=== PATIENT | male | born 1955 | race Caucasian/White ===

== ENCOUNTER → 2019-07-22 09:24 | Outpatient (CLI) | payer MEDICARE, OTHER, SELFPAY ==
--- NOTE | 2019-07-22 | DI.US.S_ITS ---
PROCEDURE: US RENAL COMPLETE INDICATIONS: UNSPECIFIED HYDRONEPHROSIS TECHNIQUE: Real-time scanning was performed of the kidneys and bladder, with image documentation. COMPARISON: None. FINDINGS: Kidneys: Right kidney measures 9.6 cm long; left kidney measures 8.6 cm long. Right renal cortical thickness is 1.2 cm; left renal cortical thickness is 1.0 cm. Renal cortical echotexture is minimally echogenic compatible with sequela of chronic medical renal disease. No right-sided hydronephrosis or nephrolithiasis. Mild left-sided hydronephrosis. No suspicious solid mass lesions. Bladder: Bladder is decompressed by a Guerrero catheter. Wall thickness measures approximately 10 mm. Bilateral ureteral jets are not visualized. (Of note, ureteral jets may not be detectable in up to 25% of cases due to insufficient differences in specific gravity between ureteral and bladder urine). Miscellaneous: No free pelvic fluid. IMPRESSION: 1. Mild left hydronephrosis. 2. Mildly increased bilateral renal echotexture consistent with sequela of chronic medical renal disease. 3. Limited evaluation of the urinary bladder secondary to decompression by Guerrero catheter. Dictated by: Charles Lugo M.D. on 07/22/2019 at 11:59 Approved by: Charles Lugo M.D. on 07/22/2019 at 12:05
== END ==
PROVIDERS: PCP Family Medicine; Referring Provider Specialist; Visit Provider Urology
DX: N13.30 Unspecified hydronephrosis (principal)
CPT/HCPCS: 76770

== ENCOUNTER → 2019-12-11 08:39 | Outpatient (CLI) | payer MEDICARE, OTHER, SELFPAY ==
--- NOTE | 2019-12-11 | DI.CT.S_ITS ---
PROCEDURE: CT ABDOMEN PELVIS W CON INDICATIONS: PROSTATE CANCER TECHNIQUE: After the administration of oral and intravenous contrast, 5 mm thick sections acquired from the diaphragms to the symphysis. 5 mm thick coronal and sagittal reformats were performed. For radiation dose reduction, the following was used: automated exposure control, adjustment of mA and/or kV according to patient size. COMPARISON: [facility], , RENAL COMPLETE, 07/22/2019, 9:49. FINDINGS: Image quality: Excellent. ABDOMEN: Lung bases: Lung bases are clear except for a slight alveolar prominence at the medial right lung base abutting the cardiac silhouette, which can be produced by slight focal pneumonitis but also scarring from prior inflammatory event. Heart size is normal. Solid organs: Liver is normal in size and enhancement. Gallbladder appears normal. Biliary system is non-dilated. Pancreas enhances normally. Spleen is normal in size and enhancement. No adrenal nodules. Kidneys are normal in size and enhancement, without hydronephrosis. Peritoneum and bowel: Stomach, small bowel, and colon loops are normal in caliber and wall thickness. No free fluid or air. Nodes and vessels: No retroperitoneal or mesenteric adenopathy. Aorta and inferior vena cava are normal in caliber. Miscellaneous: No ventral hernias. PELVIS: Genitourinary: Bladder wall thickness is abnormal, diffusely thickened, with a Guerrero catheter traversing centrally, and no urine appears present within the bladder lumen. The prostate gland area is small, perhaps reflecting prior prostatectomy. No area of adjacent adenopathy is found. Miscellaneous: No inguinal hernias or adenopathy. Bones: No suspicious bony lesions. No vertebral body compression fractures. IMPRESSION: 1. Concentric bladder wall thickening, strutting a Guerrero catheter centrally within the bladder lumen. An eccentric mass is not found. Chronic cystitis is a potential etiology for this appearance as is radiation therapy. 2. The prostate area is relatively small in terms of soft tissue prominence. No adjacent adenopathy is found. Through the osseous elements of the axial and appendicular skeleton seen no osteoblastic metastatic disease is found. 3. Slight prominence of the alveoli focally at the medial right lung base, considered most likely a manifestation of scarring from an old inflammatory event rather than evidence of focal alveolitis from mild or early pneumonia, by appearance. Dictated by: Dustin Khan M.D. on 12/11/2019 at 12:36 Approved by: Dustin Khan M.D. on 12/11/2019 at 12:42
--- NOTE | 2019-12-11 | DI.NM.S_ITS ---
PROCEDURE: NM BONE SCAN WHOLE BODY RADIOPHARMACEUTICAL: 20.5 mCi Tc-99m MDP IV. INDICATIONS: PROSTATE CANCER TECHNIQUE: Delayed whole-body scintigrams were obtained approximately 3-4 hours after intravenous injection of radiotracer. Anterior and posterior views were acquired from vertex to feet. Additional left and right oblique views of the pelvis were obtained. COMPARISON: [facility], CT, CT ABDOMEN PELVIS W CON, 12/11/2019, 9:32. FINDINGS: No lesions are identified in skull, sternum, clavicles, scapulae, ribs, bony pelvis, and visualized shafts of the long bones. There is mild scoliosis. Foci of low level increased uptake in cervical, thoracic and lumbar spine with distribution are indistinguishable from degenerative disc and facet disease; early metastasis to spine could be obscured by degenerative changes. There are foci of increased periarticular activity involving multiple peripheral joints, compatible with degenerative/arthritic changes. There is non-visualization of kidneys. There is normal soft tissue uptake. IMPRESSION: 1. No definitive focal tracer uptake. 2. Non-visualized of kidneys. This finding suggests SuperScan (diffuse metastatic disease). Please correlate with PSA. Dictated by: Yves Pena M.D. on 12/11/2019 at 16:43 Approved by: Yves Pena M.D. on 12/11/2019 at 17:28
== END ==
PROVIDERS: PCP Family Medicine; Referring Provider Family Medicine; Visit Provider Urology
DX: C61 Malignant neoplasm of prostate (principal)
CPT/HCPCS: 74177; 78306; A9503; Q9967

== ENCOUNTER → 2021-07-19 13:25 | Outpatient (CLI) | payer MEDICARE, OTHER, SELFPAY ==
--- NOTE | 2021-07-19 | DI.CT.S_ITS ---
PROCEDURE: CT ABDOMEN PELVIS WO CON INDICATIONS: Awaiting organ transplant status TECHNIQUE: Noncontrast 5 mm thick sections acquired from the diaphragms to the symphysis. 5 mm coronal and sagittal reformats were then performed. For radiation dose reduction, the following was used: automated exposure control, adjustment of mA and/or kV according to patient size. COMPARISON: None. FINDINGS: Image quality: Excellent. ABDOMEN: Lung bases: Lung bases are clear. Heart size is normal. Solid organs: Liver is normal in size. Gallbladder is normal . Pancreas is normal in contours. Spleen is normal in size. No adrenal nodules. Both kidneys are small and atrophic. There is surrounding stranding, likely chronic Peritoneum and bowel: There is a small hiatal hernia. The stomach is normal. The small bowel has a normal caliber and appearance. The large bowel demonstrates increased stool consistent with constipation. There is diverticulosis without evidence of diverticulitis. Nodes and vessels: No retroperitoneal or mesenteric adenopathy by size criteria. The aorta has atherosclerotic calcifications with no aneurysmal dilatation. Miscellaneous: No ventral hernias. PELVIS: Genitourinary: Bladder wall thickness is normal. Miscellaneous: Small fat containing inguinal hernias. No adenopathy. Bones: Multilevel degenerative changes. There is disc disease at L5-S1. IMPRESSION: 1. No acute abdominal or pelvic abnormality. 2. Bilateral atrophic kidneys. Dictated by: Naveen Ramirez M.D. on 07/19/2021 at 14:02 Approved by: Naveen Ramirez M.D. on 07/19/2021 at 14:17
--- NOTE | 2021-07-19 | DI.ECHO.S_ITS ---
[facility] +---------+ : : [address] : : : : [id number] : : : : Phone: [phone]+ Echocardiogram Report + + :Name: MIRELLA RODRIGUEZ Study Date: 07/19/2021 Height: 71 in : :[facility] ReadingLocation: Weight: 218 lb : : Gender: Male BSA: 2.2 m2 : :: 1955 Age: 65 yrs BP: 162/89 mmHg: :Reason For Study: AWAITING ORGAN TRANSPLANT : :Ordering Physician: JON COVINGTONPerformed By: Kisha El : :Referring: JON COVINGTON : + + Interpretation Summary Borderline dilation of the LV cavity. The ejection fraction is estimated to be 60-65%. Diastolic function is abnormal. Mild to moderate RV dilation with preserved systolic function. Moderate left atrial dilation. Mild to moderate mitral regurgitation. Mild tricuspid regurgitation. Mildly elevated PASP. Procedure: A two-dimensional transthoracic echocardiogram with color flow and Doppler was performed. The study quality was technically adequate. There is no prior echocardiogram noted for this patient. The patient was in sinus rhythm with heart rates between 63-67 bpm during the exam. Left Ventricle: The left ventricle is borderline dilated. The estimated left ventricular end diastolic volume is 145 ml. There is normal left ventricular wall thickness. The ejection fraction is estimated to be 60-65%. Diastolic function is abnormal. Right Ventricle: The right ventricle is mild to moderately dilated. The right ventricular systolic function is normal. Atria: The left atrium is moderately dilated. Right atrial size is normal. There is no Doppler evidence for an interatrial shunt. Mitral Valve: There is mild to moderate mitral annular calcification. The mitral valve leaflets are mildly calcified. There is mild to moderate mitral regurgitation. Aortic Valve: The aortic valve is trileaflet. The aortic valve opens well. There is no aortic valve stenosis. There is trace aortic regurgitation. Tricuspid Valve: The tricuspid valve is normal in structure and function. There is mild tricuspid regurgitation. Pulmonary artery systolic pressure is approximately 33 to 38 mmHg. Pulmonic Valve: The pulmonic valve is not well visualized. There is a trace or physiologic amount of pulmonic regurgitation. Great Vessels: The aortic root is normal size. The ascending aorta is mildly enlarged. The IVC is of normal diameter and collapses greater than 50% with a sniff. This suggests a low right atrial pressure of 3 mm Hg. Pericardium/ Pleura There is no pericardial effusion. There is no pleural effusion. MMode/2D Measurements & Calculations LVIDd: 6.0 cm LVOT diam: 2.3 cm LVIDs: 3.8 cm Ao root diam: 3.5 cm FS: 35.8 % asc Aorta Diam: 3.7 cm IVSd: 0.84 cm Ao Arch Diam (Prox Trans): 3.5 cm LVPWd: 0.78 cm LV guerrero. diameter/BSA (cm/m^2): 2.7 LV sys. diameter/BSA (cm/m^2): 1.8 LA A2 area: 33.0 cm2 RA long axis: 5.5 cm LA A4 area: 29.3 cm2 RA area: 17.5 cm2 LA length (vol): 6.3 cm RA vol: 47.7 ml LA vol: 130.7 ml RA : 21.8 ml/m2 LA vol index: 59.7 ml/m2 IVC diam: 1.4 cm RVD1 (basal): 4.6 cm TAPSE: 2.2 cm Doppler Measurements & Calculations Ao V2 max: 166.8 cm/sec LVOT Max Bhavesh: 126.4 cm/sec Ao V2 mean: 115.4 cm/sec LV V1 max P.4 mmHg Ao max P.1 mmHg LV V1 VTI: 27.4 cm Ao mean P.0 mmHg DORITA(I,D): 3.2 cm2 Ao V2 VTI: 36.0 cm DORITA(V,D): 3.1 cm2 sev ratio: 0.76 DORITA indexed to BSA (cm^2/m^2): 1.4 MV E max bhavesh: 114.8 cm/sec TR max bhavesh: 264.7 cm/sec MV A max bhavesh: 118.4 cm/sec TR max P.0 mmHg MV E/A: 0.97 PA V2 max: 115.2 cm/sec Med Peak E' Bhavesh: 6.0 cm/sec PA V2 mean: 86.3 cm/sec E/E' med: 19.3 PA mean P.3 mmHg Lat Peak E' Bhavesh: 7.0 cm/sec PA pr(Accel): 41.3 mmHg E/E' lat: 16.3 E/e' average: 17.8 MV dec time: 0.23 sec MVA(VTI): 2.5 cm2 MV V2 mean: 99.1 cm/sec SV(LVOT): 113.5 ml MV mean P.3 mmHg MV V2 VTI: 44.5 cm Reading Physician:05:38 PM
--- NOTE | 2021-07-19 | DI.US.S_ITS ---
PROCEDURE: US RENAL COMPLETE INDICATIONS: AWAITING ORGAN TRANSPLANT STATUS TECHNIQUE: Real-time scanning was performed of the kidneys and bladder, with image documentation. COMPARISON: [facility], , RENAL COMPLETE, 07/22/2019, 9:49. FINDINGS: Kidneys: Atrophic. Right kidney measures 6.3 cm long; left kidney measures 8.2 cm long. Right renal cortical thickness is 1.1 cm; left renal cortical thickness is 1.1 cm. Renal cortical echotexture is echogenic. No hydronephrosis or nephrolithiasis. No suspicious solid mass lesions. Bladder: The urinary bladder is not well distended. No ureteral jets are noted with color Doppler interrogation. Miscellaneous: No free pelvic fluid. IMPRESSION: Bilateral atrophy as detailed above. Dictated by: Shaq Garcia M.D. on 07/19/2021 at 15:17 Approved by: Shaq Garcia M.D. on 07/19/2021 at 15:22
== END ==
PROVIDERS: PCP Family Medicine; Referring Provider Specialist; Visit Provider Specialist
DX: Z76.82 Awaiting organ transplant status (principal); N26.1 Atrophy of kidney (terminal); I07.1 Rheumatic tricuspid insufficiency; I34.0 Nonrheumatic mitral (valve) insufficiency; I27.20 Pulmonary hypertension, unspecified
CPT/HCPCS: 74176; 76770; 93306

== ENCOUNTER → 2021-07-26 08:37 | Outpatient (CLI) | payer MEDICARE, OTHER, SELFPAY ==
[2021-07-26 11:53] LABS: COVID19 -Nasal RAPID Negative (Negative)
== END ==
PROVIDERS: PCP Family Medicine; Visit Provider Nurse Practitioner
DX: Z20.822 Contact with and (suspected) exposure to COVID-19 (principal); Z01.812 Encounter for preprocedural laboratory examination
CPT/HCPCS: 87635; C9803

== ENCOUNTER → 2021-07-28 07:32 | Outpatient (CLI) | payer MEDICARE, OTHER, SELFPAY ==
--- NOTE | 2021-07-28 07:34 | DI.NM.S_ITS ---
PROCEDURE: NM FAHEEM PERF SPECT REST & STR Rest and exercise myocardial perfusion SPECT with gated imaging and ejection fraction RADIOPHARMACEUTICAL: 11.7 mCi Tc-99m sestamibi IV at rest and 25.9 mCi Tc-99m sestamibi IV at peak exercise. A one day-protocol was performed. INDICATIONS: Ilia Castillo TECHNIQUE: Radiopharmaceutical was injected at peak stress test, and also at rest. SPECT images were obtained. SPECT myocardial perfusion images were displayed in short axis, horizontal long axis, and vertical long axis views. Gated images were reviewed using Slated software. COMPARISON: None. CARDIAC STRESS: A standard Agapito treadmill exercise tolerance test was performed by the patient under the supervision of an attending staff. The patient exercised for 7 minutes and 1 seconds; functional aerobic impairment (TREMAYNE) is +1%. Hemodynamic data: There is normal blood pressure and heart rate response to exercise stress. Patient achieved 92% of maximum predicted heart rate at peak exercise. Symptoms: Patient denied chest pain during exercise. EKG: Mildly horizontal ST depressions in the anterolateral and inferior leads during recovery; Frequent PACs and rare PVCs during recovery. FINDINGS: Raw data: There is good myocardial labeling by radiotracer. No significant motion artifacts. Left ventricle function: Gated images demonstrate normal left ventricle wall thickening. No segmental wall motion abnormality. No transient ischemic dilation; TID is 1.05 (normal less than 1.3). The left ventricle resting end-diastolic volume is 168 mL. Left ventricle stress ejection fraction is 67%; normal values are above 45%. Myocardial perfusion: There is fixed mildly to moderately intense defect in the basal to mid inferolateral wall that persists on prone imaging, suggesting prior infarction with no tarik-infarct ischemia. IMPRESSION: Abnormal stress test consistent with prior small non-transmural infarction. No ischemia. 1) There is fixed mildly to moderately intense defect in the basal to mid inferolateral wall that persists on prone imaging, suggesting prior infarction with no tarik-infarct ischemia. 2) Enlarged left ventricle (LVEDV 168cc) with normal wall motion and normal systolic function (EF 67% post stress). 3) Mildly horizontal ST depressions in the anterolateral and inferior leads during recovery 4) Frequent PACs and rare PVCs during recovery. 5) No angina during the study. 6) Average exercise capacity (8.1 METs, TREMAYNE +1%). Target heart rate achieved. Appropriate BP response to exercise. 7) No prior nuclear stress test available for comparison. Dictated by: Luis M Hilario MD on 07/28/2021 at 16:58 Approved by: Luis M Hilario MD on 07/28/2021 at 17:03
== END ==
PROVIDERS: PCP Specialist; Referring Provider Specialist; Visit Provider Specialist
DX: Z01.810 Encounter for preprocedural cardiovascular examination (principal); Z76.82 Awaiting organ transplant status; R94.39 Abnormal result of other cardiovascular function study
CPT/HCPCS: 78452; 93017; A9502

== ENCOUNTER → 2021-10-23 10:51 | Outpatient (CLI) | payer MEDICARE, OTHER, SELFPAY ==
[2021-10-23 14:17] LABS: COVID19 -Nasal RAPID Negative (Negative)
== END ==
PROVIDERS: PCP Internal Medicine Infectious Disease; Visit Provider Nurse Practitioner Family
DX: Z01.812 Encounter for preprocedural laboratory examination (principal); Z20.822 Contact with and (suspected) exposure to COVID-19
CPT/HCPCS: 87635; C9803

== ENCOUNTER 2021-10-24 06:34 | Day surgery (SDC) | payer MEDICARE, OTHER, SELFPAY ==
[2021-10-24] VITALS (9 sets, daily range): BP systolic 91–157; BP diastolic 40–85; PULSE 58–78; RESP 10–16; TEMP 36.4–36.6; O2SAT 97–100; BMI 30.1
--- NOTE | 2021-10-24 | PATH_ITS ---
[facility] Accession Number: [id number] . 01 Material submitted: . PART A: cecum - CECAL POLYP PART B: rectum - RECTAL POLYP . 02 Diagnosis: A. Cecum, Polyp, Biopsy: Colonic mucosa with no significant diagnostic abnormality, consistent with polypoid redundancy. Additional levels were examined. Negative for dysplasia and malignancy. . B. Rectum, Polyp, Biopsy: Mucosal prolapse polyp. Negative for dysplasia and malignancy. [facility] 10/26/2021 1622 Local . 02 Electronically signed: . Felisha Bobo MD, Pathologist NPI- [id number] . 01 Gross description: . Part A: CECAL POLYP: Received in formalin is 1 fragment(s) of florian, soft tissue measuring 0.2 x 0.2 x 0.2 cm submitted entirely in 1 cassette(s) Part B: RECTAL POLYP: Received in formalin is 1 fragment(s) of florian, soft tissue measuring 0.2 x 0.2 x 0.2 cm submitted entirely in 1 cassette(s) /SOPHIA 10/25/2021 1945 Local . 02 Pathologist provided ICD-10: K63.5 . 02 CPT . 524805, [id number] Performed at: 01 [facility] [address], [place], [place] [id number] MD Ricky Raines MD Phone: [phone] Performed at: 02 [facility] [address] [place], [place] [id number] MD Felisha Bobo MD Phone: [phone]
[2021-10-24] MEDS: SODIUM CHLORIDE 0.9% 1,000 ML 84 ML IV (07:44)
--- NOTE | 2021-10-24 07:56 | PM.HP.1 ---
History of Present Illness History of Present Illness Date Patient Seen: 10/24/21 Time Patient Seen: 07:56 Chief complaint: SCREENING COLONOSCOPY Narrative: Asymptomatic. He is considering kidney transplant and colon cancer screening needs to be accomplished prior Patient History Family & Social History Social History: household members spouse Tobacco & Substance use: Smoking Status Never smoker alcohol intake frequency 0-2 drinks per day Substance Use Type does not use Meds Home Medications and Allergies Home Medications Medication Instructions Recorded Confirmed Type clonidine HCl 0.2 mg tablet 0.2 mg PO DAILY 10/24/21 10/24/21 History sucroferric oxyhydroxide 500 mg 500 mg PO TID 10/24/21 10/24/21 History chewable tablet (Velphoro) Allergies Allergy/AdvReac Type Severity Reaction Status Date / Time No Known Drug Allergies Allergy Verified 10/24/21 07:07 Review of Systems Review of Systems ROS: Yes All systems reviewed with the patient and are negative except as otherwise documented Exam Vital Signs (past 8 hours): - 10/24/21 07:22 Temperature 97.8 F Pulse Rate 78 Respiratory Rate 16 Blood Pressure 157/85 H Pulse Oximetry 100 Oxygen Delivery Method Room Air Const General: cooperative and comfortable Orientation: alert HENMT Head: normocephalic Ears: external ears normal Nose: external nose normal Face and sinus: normal facial exam Mouth: oral mucosae normal Eyes General: appearance normal, both eyes and all related structures Neck Neck: normal visual inspection Chest Chest: normal inspection of the chest Resp Effort & Inspection: normal respiratory effort Cardio Rate: regular rate GI Inspection: normal to inspection Skin General: no rashes or lesions noted and No jaundice Neuro General: patient alert and moves all extremities Cognition: normal cognition Speech: speech normal Extrem General: no pedal edema Psych Appearance: grossly normal Assessment & Plan Assessment & Plan narrative: 66-year-old male indicated for colon cancer screening. Colonoscopy is planned for today. Time Spent With Patient Critical Care time: I spent a total of [] minutes of critical care time on this patient's care today; this time is exclusive of procedural time.
--- NOTE | 2021-10-24 07:57 | PM.PREOP ---
Pre-operative Note COVID-19 COVID-19 status: Negative Result date/Date tested (Pos, Neg/Pending): 10/23/21 Interval Note History & Physical reviewed/Exam performed by Physician: Yes Changes to H&P: No H&P completed within 30 days and has changed as indicated here:: Today ASA Class (for procedural sedation): II
--- NOTE | 2021-10-24 08:28 | PM.OP.COLON ---
Operative Date/Time/Diagnoses Date of procedure: 10/24/21 Time of procedure: 08:28 Pre-op diagnosis: Colon cancer screening Post-op diagnosis: same Procedure & Clinicians Study performed: Colonoscopy with cold forceps polypectomy Same procedure as scheduled: Yes Indications: Colon cancer screening Surgeon: Naveed Perez Procedure Notes SCOAP/Timeout: Done Procedure in detail: After the risks and benefits were explained, written and verbal informed consent was obtained. The patient was brought into the procedure room and placed into the left lateral decubitus position. Please see nurse industrial hygienist notes for sedation details. Digital rectal examination was accomplished. The scope was introduced into the patient and advanced under direct visualization to the cecum as identified by the appendiceal orifice and ileocecal valve. The scope was slowly withdrawn to carefully examine the mucosa for any defects or lesions. Comprehensive imaging was accomplished throughout the rectum including the dentate line. The colon was decompressed, the scope was then removed from the patient who tolerated the procedure well. Adult colonoscope Fair prep rendered adequate with copious irrigation and suction. Scope withdrawal time: 12 minutes Sedation minutes: 21 Complications: none Impression: Patient had moderate internal hemorrhoids these would be grade 2. There was a diminutive polyp in the cecum removed with cold forceps there was a 2nd diminutive pedunculated polyp in the rectum removed with cold forceps. No additional mucosal pathology was appreciated throughout. Endoscopic diagnosis 1. Grade 2 hemorrhoids 2. Diminutive colon polyps Post-procedure Plan for aftercare: 1. Await histopathology 2. Repeat colonoscopy 5 years. Disposition: PACU
--- NOTE | 2021-10-24 08:59 | SUR.PHASEII ---
Belly soft no pain no nausea, pt left when ready, left in stable condition.
--- NOTE | 2021-10-24 15:02 | SUR.PHASEII ---
Late entry: Pt ready to go, belly soft, no nausea/discomfort. Left in stable condition.
== END 2021-10-24 09:30 | disposition home or self-care (01) ==
PROVIDERS: PCP Internal Medicine Infectious Disease; Referring Provider Internal Medicine Gastroenterology; Visit Provider Internal Medicine Gastroenterology
PROC: 0DJD8ZZ Inspection of Lower Intestinal Tract, Via Natural or Artificial Opening Endoscopic (ICD-10-PCS; CPT 45378; principal; 2021-10-24 08:00)
DX: Z12.11 Encounter for screening for malignant neoplasm of colon (principal); K64.1 Second degree hemorrhoids; K63.5 Polyp of colon
CPT/HCPCS: 45380; J2704

== ENCOUNTER → 2024-07-10 11:45 | Outpatient (CLI) | payer MEDICARE, OTHER, SELFPAY ==
--- NOTE | 2024-07-10 11:48 | DI.US.S_ITS ---
PROCEDURE: US PERIPH VENOUS LOW EXTREM BI INDICATIONS: DVT OF RT LE TECHNIQUE: Real-time imaging, as well as color and pulse Doppler interrogation, were performed of the deep veins of both legs from the inguinal ligament to the popliteal fossa, with documentation of the visualized calf veins. COMPARISON: None. FINDINGS: Right: The common femoral, femoral, popliteal, and the visualized calf veins are normally compressible, and free of intraluminal thrombus. Color and pulse Doppler demonstrate normal phasic intravascular flow. There is normal augmentation response to distal compression maneuver. Left: The common femoral, femoral, popliteal, and the visualized calf veins are normally compressible, and free of intraluminal thrombus. Color and pulse Doppler demonstrate normal phasic intravascular flow. There is normal augmentation response to distal compression maneuver. Within the left femoral vein there is a frozen valve without change with respirations. The left calf veins are not well seen, secondary to adjacent shadowing. IMPRESSION: No findings of deep venous thrombosis in either lower extremity. Dictated by: Chava Hernandez M.D. on 07/10/2024 at 13:17 Approved by: Chava Hernandez M.D. on 07/10/2024 at 13:18
== END ==
PROVIDERS: PCP Internal Medicine Infectious Disease; Referring Provider Specialist; Visit Provider Specialist
DX: I82.401 Acute embolism and thrombosis of unspecified deep veins of right lower extremity (principal)
CPT/HCPCS: 93970